=== PATIENT | female | born 1965 | race Hispanic/Latino ===

== ENCOUNTER 2017-01-30 13:49 | Emergency (ER) | payer SELFPAY ==
[~2017-01-30] VITALS: Ht 162.6 cm; Wt 68.0 kg
[~2017-01-30 13:49] MED LIST: LEVAQUIN500 MG PO; ZOLOFT50 MG PO
[2017-01-30] MEDS ORDERED: FAMOTIDINE 20 MG/2 ML VIAL IV STA (14:07)
[2017-01-30] MEDS ORDERED: DIPHENHYDRAMINE HCL INJ 50 MG/ML VIAL IV ONE (14:15)
[2017-01-30] MEDS ORDERED: METHYLPREDNISOLONE SOD SUCC 125 MG/2ML VIAL IV ONE (14:15)
== END 2017-01-30 17:04 | disposition home or self-care (01) ==
LOC: ER 13:49
DX: T78.3XXA Angioneurotic edema, initial encounter (principal); T78.1XXA Other adverse food reactions, not elsewhere classified, initial encounter
CPT/HCPCS: 99283; J1200; J2930

== ENCOUNTER 2024-09-04 10:34 | Emergency (ER) | payer OTHER ==
[~2024-09-04] VITALS: Ht 165.1 cm; Wt 68.0 kg
[2024-09-04 10:50] VITALS: PULSE 76; RESP 14; TEMP 98.4; O2SAT 99
[2024-09-04] MEDS ORDERED: MEDROL4 M2 PO (10:58)
== END 2024-09-04 11:00 | disposition home or self-care (01) ==
LOC: ER 10:44
DX: L25.9 Unspecified contact dermatitis, unspecified cause (principal); E11.9 Type 2 diabetes mellitus without complications; F17.210 Nicotine dependence, cigarettes, uncomplicated
CPT/HCPCS: 99282